=== PATIENT | male | born 1995 | race Caucasian/White ===

== ENCOUNTER 2018-11-30 18:31 | Emergency (ER) | payer MEDICAID ==
[~2018-11-30] VITALS: Ht 180.3 cm; Wt 67.4 kg
--- NOTE | 2018-11-30 18:43 | NUR ---
PT WITH C/O OF BACK PAIN. PT STATES HE HAS HAD BACK PAIN FOR ABOUT FOUR YRS, HE DOESMT LIKE DOCTORS SO HE DIDNT WANT TO GET IT CHECKED OUT. PT STATES HE WOKE UP THIS AM AND IT HURT SO BAD HE COULDNT BREATH. PT WITH NO MEDICAL HX. NAD NOTED AT THIS TIME
[2018-11-30] MEDS ORDERED: KETOROLAC 60 MG/2 ML ONE (18:56)
[2018-11-30] MEDS ORDERED: METHOCARBAMOL 750 MG TABLET ONE (18:56)
[2018-11-30] MEDS ORDERED: METHOCARBAMOL 750 MG TABLET PO ONE (19:00)
[2018-11-30] MEDS ORDERED: KETOROLAC 30 MG/1 ML IM ONE (19:00)
--- NOTE | 2018-11-30 19:01 | NUR ---
PT SITTING UP IN CHAIR, MEDICATED PER MAR
--- NOTE | 2018-11-30 19:14 | NUR ---
PT'S SPOUSE REQUESTING TO SPEAK TO PA, PA AT BEDSIDE, ADDITIIONAL ORDERS RECEIVED LABS, CXRAY
--- NOTE | 2018-11-30 19:19 | NUR ---
URINE SAMPLE SENT
[2018-11-30 19:28] VITALS: BP 101/50
[2018-11-30 19:31] LABS: MICROSCOPIC NOT IND
[2018-11-30 19:32] LABS: BASOPHILS # (AUTO) 0.07 x10^3/uL (0-0.1); BASOPHILS % (AUTO) 1 % (0-1); EOSINOPHILS # (AUTO) 0.27 x10^3/uL (0-0.4); EOSINOPHILS % (AUTO) 3 % (1-7); LYMPHOCYTES # (AUTO) 2.79 x10^3/uL (1-3.4); LYMPHOCYTES % (AUTO) 26 % (22-44); MD NO; MEAN CORPUSCULAR HEMOGLOBIN 30.4 pg (27.5-34.5); MEAN CORPUSCULAR VOLUME 92.1 fL (81-97); MEAN PLATELET VOLUME 7.4 fL (7.4-10.4); MONOCYTES # (AUTO) 0.81 x10^3/uL (0.2-0.8); MONOCYTES % (AUTO) 8 % (2-9); NEUTROPHILS # (AUTO) 6.68 x10^3/uL (1.8-6.8); NEUTROPHILS % (AUTO) 63 % (42-75); PLATELET COUNT 270 x10^3/uL (130-400); RED BLOOD COUNT 5.19 x10^6/uL (4.38-5.82); RED CELL DISTRIBUTION WIDTH 13.5 % (9.4-14.8)
[2018-11-30 19:41] LABS: ALBUMIN 4.3 g/dL (3.4-5.0); ANION GAP 7 mmol/L (5-15); CHLORIDE 107 mmol/L (98-107)
[2018-11-30 19:46] LABS: ALANINE AMINOTRANSFERASE 30 U/L (12-78); ALKALINE PHOSPHATASE 50 U/L (45-117); BILIRUBIN,TOTAL 0.3 mg/dL (0.2-1.0); TOTAL PROTEIN 7.5 g/dL (6.4-8.2)
[2018-11-30 20:14] LABS: CULTURE INDICATED? NO
== END 2018-11-30 20:55 | disposition home or self-care (01) ==
LOC: ED 20:15
DX: M54.5 Low back pain (principal)
CPT/HCPCS: 36415; 71046; 80053; 81003; 83690; 85025; 96372; 99284; J1885